=== PATIENT | female | born 1965 | race Asian ===

== ENCOUNTER 2018-04-21 06:23 | Day surgery (SDC) | payer BC, OTHER ==
[2018-04-21] MEDS ORDERED: LIDOCAINE 1% MDV 20ML VIAL As Ordered (06:49)
[2018-04-21] MEDS ORDERED: PROPOFOL 200 MG/20 ML VIAL As Ordered (06:49)
[2018-04-21] MEDS: NS 1,000 ML IV (07:07)
== END 2018-04-21 08:35 | disposition home or self-care (01) ==
LOC: M OPP 06:23
DX: Z12.11 Encounter for screening for malignant neoplasm of colon (principal); K64.0 First degree hemorrhoids; D12.2 Benign neoplasm of ascending colon; E11.9 Type 2 diabetes mellitus without complications; G47.30 Sleep apnea, unspecified; I10 Essential (primary) hypertension; E78.00 Pure hypercholesterolemia, unspecified; E03.9 Hypothyroidism, unspecified; Z79.82 Long term (current) use of aspirin; Z79.84 Long term (current) use of oral hypoglycemic drugs; Z79.899 Other long term (current) drug therapy; Z78.0 Asymptomatic menopausal state
CPT/HCPCS: 45380